=== PATIENT | female | born 1995 | race Caucasian/White ===

== ENCOUNTER 2018-01-22 11:29 | Emergency (ER) | payer OTHER, SELFPAY ==
[2018-01-22] MEDS ORDERED: PROMETHAZINE 25 MG/ML VIAL ONE ×2 (13:00→14:59)
[2018-01-22] MEDS ORDERED: NA CHLORIDE 0.9% 2,000 ML ONE (13:01)
[2018-01-22 13:40] LABS: Absolute Lymphocytes (CBC) 1.2 K/uL (0.7-4.9); Absolute Monocytes 0.4 K/uL (0.1-1.3); Absolute Neutrophil 4.9 K/uL (1.8-8.0); Basophils % 0.3 % (0-1.3); Eosinophils % 0.1 % (0-4.4); Hematocrit 39.6 % (36.0-45.0); Lymphocytes % 18.6 % (15.3-44.8); MCH 30.4 pg (27.0-35.0); MCV 86.1 fL (80-100); MPV 9.6 fL (7.6-11.3); Monocytes % 6.7 % (3.3-12.3)
[2018-01-22 13:49] LABS: ALT/SGPT 18 U/L (12-78); AST/SGOT 9 U/L (15-37); Albumin 4.3 g/dL (3.4-5.0); Alkaline Phosphatase 71 U/L (45-117); BUN Blood Urea Nitrogen 6 mg/dL (7-18); Bicarbonate 26 mmol/L (21-32); Bilirubin Direct 0.3 mg/dL (0-0.2); Bilirubin Total 0.9 mg/dL (0.2-1.0); Glucose Level 81 mg/dL (74-106); Lipase 63 U/L (73-393); Protein, Total 7.7 g/dL (6.4-8.2); Sodium Level 140 mmol/L (136-145)
[2018-01-22] MEDS ORDERED: KCL 20 MEQ/100 mL IVPB 20 MEQ/100 ML BAG IV ONE (14:22)
[2018-01-22 14:59] LABS: Urine Bacteria >50 /HPF (<20); Urine Culture Reflex Order NOT NEEDED; Urine RBC <5 /HPF (NONE SEEN)
[2018-01-22] MEDS ORDERED: CEFTRIAXONE/SWI 1gm 1 GM/10 ML SYR ONE (15:17)
--- NOTE | 2018-01-22 15:32 | EDPHYS ---
Physician Documentation [facility] Name: Jade Gaona Age: 22 yrs Sex: Female : 1995 Arrival Date: 01/22/2018 Time: 11:34 Bed 20 Private MD: None, None ED Physician Jez Devi HPI: 01/22 13:01 This 22 yrs old Female presents to ER via Ambulatory with complaints of snw Abdominal Pain, Vomiting. 13:01 The patient presents with tenderness to generalized abdomen s/p vomiting x 5 days. Seen snw at [facility] on Thursday, dx with food poisoning/pt disagrees. Onset: The symptoms/episode began/occurred suddenly, 5 day(s) ago, and became worse and became persistent. The symptoms do not radiate. The symptoms are described as crampy. Modifying factors: The symptoms are alleviated by nothing, the symptoms are aggravated by vomiting. Severity of pain: At its worst the pain was moderate severe. The patient has not experienced similar symptoms in the past. The patient has been recently seen by a physician: as noted. 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 - Social history:: Smoking status: Patient/guardian denies using tobacco. - Ebola Screening: : No symptoms or risks identified at this time. ROS: 13:00 Constitutional: Negative for fever, chills, and weight loss, Eyes: Negative for injury, snw pain, redness, and discharge, ENT: Negative for injury, pain, and discharge, Neck: Negative for injury, pain, and swelling, Cardiovascular: Negative for chest pain, palpitations, and edema, Respiratory: Negative for shortness of breath, cough, wheezing, and pleuritic chest pain, Back: Negative for injury and pain, : Negative for injury, bleeding, discharge, and swelling, MS/Extremity: Negative for injury and deformity, Skin: Negative for injury, rash, and discoloration, Neuro: Negative for headache, weakness, numbness, tingling, and seizure, Psych: Negative for depression, anxiety, suicide ideation, homicidal ideation, and hallucinations. 13:00 Abdomen/GI: Positive for nausea, vomiting. Exam: 13:00 Head/Face: Normocephalic, atraumatic. Eyes: Pupils equal round and reactive to light, snw extra-ocular motions intact. Lids and lashes normal. Conjunctiva and sclera are non-icteric and not injected. Cornea within normal limits. Periorbital areas with no swelling, redness, or edema. ENT: Nares patent. No nasal discharge, no septal abnormalities noted. Tympanic membranes are normal and external auditory canals are clear. Oropharynx with no redness, swelling, or masses, exudates, or evidence of obstruction, uvula midline. Mucous membranes moist. Neck: Trachea midline, no thyromegaly or masses palpated, and no cervical lymphadenopathy. Supple, full range of motion without nuchal rigidity, or vertebral point tenderness. No Meningismus. Chest/axilla: Normal chest wall appearance and motion. Nontender with no deformity. No lesions are appreciated. Cardiovascular: Regular rate and rhythm with a normal S1 and S2. No gallops, murmurs, or rubs. Normal PMI, no JVD. No pulse deficits. Respiratory: Lungs have equal breath sounds bilaterally, clear to auscultation and percussion. No rales, rhonchi or wheezes noted. No increased work of breathing, no retractions or nasal flaring. 13:00 Back: No spinal tenderness. No costovertebral tenderness. Full range of motion. Skin: Warm, dry with normal turgor. Normal color with no rashes, no lesions, and no evidence of cellulitis. MS/ Extremity: Pulses equal, no cyanosis. Neurovascular intact. Full, normal range of motion. Neuro: Awake and alert, GCS 15, oriented to person, place, time, and situation. Cranial nerves II-XII grossly intact. Motor strength 5/5 in all extremities. Sensory grossly intact. Cerebellar exam normal. Normal gait. 13:00 Constitutional: The patient appears anxious, frail, restless, unkempt. 13:00 Abdomen/GI: Inspection: abdomen appears normal, Bowel sounds: normal, Palpation: mild abdominal tenderness, in all quadrants. 13:00 Psych: Behavior/mood is anxious, inappropriate for age, Oriented to person, place, time. Vital Signs: 11:41 BP 120 / 80; Pulse 87; Resp 16; Temp 98.1; Pulse Ox 100% on R/A; Pain 3/10; hb 13:00 BP 116 / 64; Pulse 88; Resp 16; Pulse Ox 99% on R/A; em 14:34 BP 121 / 68; Pulse 62; Resp 18; Pulse Ox 100% on R/A; Pain 0/10; em 15:36 BP 106 / 57; Pulse 71; Resp 16; Pulse Ox 99% on R/A; Pain 0/10; em MDM: 12:44 Patient medically screened. snw 15:31 Data reviewed: vital signs, nurses notes. Data interpreted: Pulse oximetry: on room air snw is 100 %. Interpretation: normal. Counseling: I had a detailed discussion with the patient and/or guardian regarding: the historical points, exam findings, and any diagnostic results supporting the discharge/admit diagnosis, lab results, the need for outpatient follow up, to return to the emergency department if symptoms worsen or persist or if there are any questions or concerns that arise at home. Awaiting: potassium infusion to finish. Special discussion: Based on the patient's Hx, exam, and Dx evaluation, there is no indication for emergent surgery or inpatient Tx. It is understood by the patient/guardian that if the Sx's persist or worsen they need to return immediately for re-evaluation. Based on the history and exam findings, there is no indication for further emergent testing or inpatient evaluation. I discussed with the patient/guardian the need to see the primary care provider for further evaluation of the symptoms. 01/22 11:45 Order name: Urine Microscopic Only; Complete Time: 15:06 snw 01/22 12:47 Order name: Basic Metabolic Panel; Complete Time: 13:52 snw 01/22 12:47 Order name: CBC with Diff; Complete Time: 14:26 snw 01/22 12:47 Order name: Hepatic Function; Complete Time: 13:52 snw 01/22 12:47 Order name: Lipase; Complete Time: 13:52 snw 01/22 12:48 Order name: Test, Serum; Complete Time: 13:49 snw 01/22 11:45 Order name: Urine Test (obtain specimen); Complete Time: 14:31 snw 01/22 14:49 Order name: Urine Dipstick--Ancillary (enter results) 01/22 11:45 Order name: Urine Dipstick-Ancillary (obtain specimen); Complete Time: 14:31 snw 01/22 12:47 Order name: IV Saline Lock; Complete Time: 13:09 snw 01/22 12:47 Order name: Labs collected and sent; Complete Time: 13:09 snw Administered Medications: 13:08 Drug: NS 0.9% 1000 ml Route: IV; Rate: 1 bolus; Site: left antecubital; em 15:00 Follow up: IV Status: Completed infusion; IV Intake: 1000ml em 13:09 Drug: NS 0.9% 1000 ml Route: IV; Rate: 1 bolus; Site: left antecubital; em 15:00 Follow up: IV Status: Completed infusion; IV Intake: 1000ml em 13:15 Drug: Phenergan 12.5 mg Route: IVP; Site: left antecubital; iw 14:18 Follow up: Response: No adverse reaction; Nausea is decreased em 14:29 Drug: Potassium Chloride 20 mEq Route: IV; Rate: calculated rate; Site: left em antecubital; 15:59 Follow up: Response: No adverse reaction; IV Status: Completed infusion; IV Intake: em 100ml 14:57 Drug: Phenergan 12.5 mg Route: IVP; Site: left antecubital; em 15:59 Follow up: Response: No adverse reaction; Nausea is decreased em 15:50 Drug: Rocephin 1 grams Route: IV; Rate: calculated rate; Site: left antecubital; iw 15:59 Follow up: Response: No adverse reaction; IV Status: Completed infusion; IV Intake: 10mlem Disposition: 18:13 Co-signature as Attending Physician, Jez Devi MD I agree with the assessment and kdr plan of care. Disposition: 01/22/18 15:31 Discharged to Home. Impression: Vomiting, unspecified, Hypokalemia, Dehydration, Urinary tract infection, site not specified. - Condition is Stable. - Discharge Instructions: Clear Liquid Diet, Adult, Potassium Content of Foods, Nausea and Vomiting, Adult, Urinary Tract Infection, Adult, Rehydration, Adult. - Prescriptions for promethazine 25 mg Oral Tablet - take 1 tablet by ORAL route every 6 hours As needed; 20 tablet. Augmentin 875- 125 mg Oral Tablet - take 1 tablet by ORAL route every 12 hours for 10 days; 20 tablet. - Work release form, Medication Reconciliation Form, Thank You Letter, Antibiotic Education, Prescription Opioid Use form. - Follow up: Emergency Department; When: As needed; Reason: Worsening of condition. Follow up: Private Physician; When: 2 - 3 days; Reason: Recheck today's complaints, Continuance of care, Re-evaluation by your physician. Signatures: Dispatcher [employer] EDMS Jez Devi MD MD [facility] Sally Bradley, LITO-C BOILER SHOP MECHANIC-Csnw Vasiliy Fernandez, ELEMENTARY SCHOOL MUSIC TEACHER ELEMENTARY SCHOOL MUSIC TEACHER em Bri Mills RN RN Linn Hudson RN RN Corrections: (The following items were deleted from the chart) 16:00 15:31 01/22/2018 15:31 Discharged to Home. Impression: Vomiting, unspecified; em Hypokalemia; Dehydration; Urinary tract infection, site not specified. Condition is Stable. Discharge Instructions: Clear Liquid Diet, Adult, Potassium Content of Foods, Nausea and Vomiting, Adult, Rehydration, Adult, Urinary Tract Infection, Adult. Prescriptions for promethazine 25 mg Oral Tablet - take 1 tablet by ORAL route every 6 hours As needed; 20 tablet, Augmentin 875-125 mg Oral Tablet - take 1 tablet by ORAL route every 12 hours for 10 days; 20 tablet. and Forms are Work release form, Medication Reconciliation Form, Thank You Letter, Antibiotic Education, Prescription Opioid Use. Follow up: Emergency Department; When: As needed; Reason: Worsening of condition. Follow up: Private Physician; When: 2 - 3 days; Reason: Recheck today's complaints, Continuance of care, Re-evaluation by your physician. snw
--- NOTE | 2018-01-22 15:32 | ER ---
Nurse's Notes [facility] Name: Jade Gaona Age: 22 yrs Sex: Female : 1995 Arrival Date: 01/22/2018 Time: 11:34 Bed 20 Private MD: None, None Diagnosis: Vomiting, unspecified;Hypokalemia;Dehydration;Urinary tract infection, site not specified Presentation: 01/22 11:39 Presenting complaint: Patient states: N/V and upper abdominal pain x 5 days, not hb tolerating liquids. Denies fever/diarrhea. Transition of care: patient was not received from another setting of care. Onset of symptoms was January 18, 2018. Risk Assessment: Do you want to hurt yourself or someone else? Patient reports no desire to harm self or others. Care prior to arrival: None. 11:39 Method Of Arrival: Ambulatory hb 11:39 Acuity: JENNIFER 3 hb 13:10 Initial Sepsis Screen: Does the patient meet any 2 criteria? No. Patient's initial em sepsis screen is negative. Does the patient have a suspected source of infection? No. Patient's initial sepsis screen is negative. 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 - Social history:: Smoking status: Patient/guardian denies using tobacco. - Ebola Screening: : No symptoms or risks identified at this time. Screenin:10 Abuse screen: Denies threats or abuse. Nutritional screening: Has had N/V for 3 or more em days. Tuberculosis screening: No symptoms or risk factors identified. Fall Risk None identified. Assessment: 13:00 General: Appears uncomfortable, Behavior is cooperative, anxious, Reports Denies fever. em Pain: Complains of pain in abdomen Pain currently is 3 out of 10 on a pain scale. Neuro: Level of Consciousness is awake, alert, obeys commands, Oriented to person, place, time, situation, Denies dizziness. Cardiovascular: Capillary refill < 3 seconds Patient's skin is warm and dry. Respiratory: Airway is patent Respiratory effort is even, unlabored, Respiratory pattern is regular, symmetrical, Breath sounds are clear bilaterally. GI: Abdomen is flat, Bowel sounds present X 4 quads. Abd is soft X 4 quads Abdomen is tender to palpation X 4 quads. Reports nausea, vomiting, Patient currently denies diarrhea. : No signs and/or symptoms were reported regarding the genitourinary system. EENT: No signs and/or symptoms were reported regarding the EENT system. Derm: Skin is intact, is healthy with good turgor, Skin is pink, warm \T\ dry. Musculoskeletal: Capillary refill < 3 seconds, Range of motion: intact in all extremities. 13:15 Reassessment: Patient appears in no apparent distress at this time. I agree with above iw assessment by Vasiliy Fernandez LVN. 14:00 Reassessment: Patient appears in no apparent distress at this time. Patient and/or em family updated on plan of care and expected duration. Pain level reassessed. Patient is alert, oriented x 3, equal unlabored respirations, skin warm/dry/pink. Patient denies pain at this time. Patient states feeling better. Patient states symptoms have improved. 14:50 Reassessment: Patient appears in no apparent distress at this time. Patient and/or em family updated on plan of care and expected duration. Pain level reassessed. Patient is alert, oriented x 3, equal unlabored respirations, skin warm/dry/pink. c/o nausea, provider notified, new medication orders received, pending completion of IV potassium. 15:55 Reassessment: Patient appears in no apparent distress at this time. Patient and/or em family updated on plan of care and expected duration. Pain level reassessed. Patient is alert, oriented x 3, equal unlabored respirations, skin warm/dry/pink. Patient denies pain at this time. Patient states feeling better. Patient states symptoms have improved. Vital Signs: 11:41 BP 120 / 80; Pulse 87; Resp 16; Temp 98.1; Pulse Ox 100% on R/A; Pain 3/10; hb 13:00 BP 116 / 64; Pulse 88; Resp 16; Pulse Ox 99% on R/A; em 14:34 BP 121 / 68; Pulse 62; Resp 18; Pulse Ox 100% on R/A; Pain 0/10; em 15:36 BP 106 / 57; Pulse 71; Resp 16; Pulse Ox 99% on R/A; Pain 0/10; em ED Course: 11:34 Patient arrived in ED. mr 11:34 None, None is Private Physician. mr 11:42 Arm band placed on. hb 11:49 Triage completed. hb 11:56 Sally Bradley [facility]NP-C [facility] snw 11:56 Jez Devi MD is Attending Physician. snw 13:08 Vasiliy Fernandez LVN is Primary Nurse. em 13:10 Patient has correct armband on for positive identification. Placed in gown. Bed in low em position. Call light in reach. Side rails up X2. 15:54 No provider procedures requiring assistance completed. IV discontinued, intact, em bleeding controlled, No redness/swelling at site. Pressure dressing applied. Administered Medications: 13:08 Drug: NS 0.9% 1000 ml Route: IV; Rate: 1 bolus; Site: left antecubital; em 15:00 Follow up: IV Status: Completed infusion; IV Intake: 1000ml em 13:09 Drug: NS 0.9% 1000 ml Route: IV; Rate: 1 bolus; Site: left antecubital; em 15:00 Follow up: IV Status: Completed infusion; IV Intake: 1000ml em 13:15 Drug: Phenergan 12.5 mg Route: IVP; Site: left antecubital; iw 14:18 Follow up: Response: No adverse reaction; Nausea is decreased em 14:29 Drug: Potassium Chloride 20 mEq Route: IV; Rate: calculated rate; Site: left em antecubital; 15:59 Follow up: Response: No adverse reaction; IV Status: Completed infusion; IV Intake: em 100ml 14:57 Drug: Phenergan 12.5 mg Route: IVP; Site: left antecubital; em 15:59 Follow up: Response: No adverse reaction; Nausea is decreased em 15:50 Drug: Rocephin 1 grams Route: IV; Rate: calculated rate; Site: left antecubital; iw 15:59 Follow up: Response: No adverse reaction; IV Status: Completed infusion; IV Intake: 10mlem Intake: 15:00 IV: 1000ml; Total: 1000ml. em 15:00 IV: 1000ml; Total: 2000ml. em 15:59 IV: 100ml; Total: 2100ml. em 15:59 IV: 10ml; Total: 2110ml. em Outcome: 15:31 Discharge ordered by . ezio 15:54 Discharged to home ambulatory. em 15:54 Condition: good 15:54 Discharge instructions given to patient, Instructed on discharge instructions, follow up and referral plans. medication usage, Demonstrated understanding of instructions, follow-up care, medications, Prescriptions given X 2. 16:00 Patient left the ED. em Signatures: Sally Bradley, RESTAURANT HOURLY MANAGER-C RESTAURANT HOURLY MANAGER-Csnw Soha Mccartney, Vasiliy, WHEEL POLISHER WHEEL POLISHER em Bri Mills, RN RN Linn Brian, YA RN hb
[2018-01-22 16:17] VITALS: TEMP 98.1
[2018-01-22 16:20] VITALS: BP 106/57; O2SAT 99
[2018-01-22 16:56] LABS: Urine Blood NEGATIVE (NEG); Urine Glucose NEGATIVE (NEG); Urine Protein TRACE (NEG); Urine Specific Gravity 1.015 (1.005-1.030)
== END 2018-01-22 16:00 | disposition home or self-care (01) ==
LOC: ER 11:29
DX: E87.6 Hypokalemia (principal); E86.0 Dehydration; N39.0 Urinary tract infection, site not specified; R11.10 Vomiting, unspecified
CPT/HCPCS: 36415; 80048; 80076; 81003; 81015; 83690; 84703; 85025; 96361; 96365; 96375; 99283; J0696; J2550; J7030

== ENCOUNTER 2020-04-22 02:49 | Emergency (ER) | payer SELFPAY ==
--- OUTSIDE RECORDS SUMMARY | 2020-04-22 02:52 | XMS REPORT | Continuity of Care Document ---
:1995 Author Organization [facility] t Address [address] [place] [address] Dr. Rondon [address] [place] [id number] Care Team Providers Name Role Phone Unavailable Unavailable Unavailable Problems This patient has no known problems. Allergies, Adverse Reactions, Alerts This patient has no known allergies or adverse reactions. Medications This patient has no known medications. Procedures This patient has no known procedures. Results This patient has no known results.
--- NOTE | 2020-04-22 04:13 | ER ---
Nurse's Notes [facility] Name: Jade Gaona Age: 24 yrs Sex: Female : 1995 Arrival Date: 04/22/2020 Time: 02:51 Bed 5 Private MD: Diagnosis: Dental caries Presentation: 04/22 03:10 Coronavirus screen: Client denies travel out of the [place] in the last 14 days. At this sg time, the client does not indicate any symptoms associated with coronavirus-19. Ebola Screen: Patient negative for fever greater than or equal to 101.5 degrees Fahrenheit, and additional compatible Ebola Virus Disease symptoms Patient denies exposure to infectious person. Patient denies travel to an Ebola-affected area in the 21 days before illness onset. No symptoms or risks identified at this time. Initial Sepsis Screen: Does the patient meet any 2 criteria? No. Patient's initial sepsis screen is negative. Does the patient have a suspected source of infection? No. Patient's initial sepsis screen is negative. Risk Assessment: Do you want to hurt yourself or someone else? Patient reports no desire to harm self or others. Onset of symptoms was April 22, 2020. Care prior to arrival: None. Transition of care: patient was not received from another setting of care. 03:10 Acuity: JENNIFER 4 sg 03:10 Method Of Arrival: Ambulatory 03:10 Chief complaint: Patient states: Right upper jaw pain, reports having an issue with the sg tooth and gums, similar incident with the left side and a root canal was done and improved the pain. pt states would like to get something to help control the pain until follow up with dentist. Historical: - Allergies: 03:10 No Known Allergies; sg - PSHx: 03:10 Femur - left; sg - Immunization history:: Adult Immunizations not up to date. - Social history:: Smoking status: Patient reports the use of cigarette tobacco products. Screenin:37 Abuse screen: Denies threats or abuse. Denies injuries from another. Nutritional rv screening: No deficits noted. Tuberculosis screening: No symptoms or risk factors identified. Fall Risk None identified. Assessment: 03:36 General: Appears uncomfortable, Behavior is crying. Pain: Complains of pain in right rv jaw, right side of the face. Neuro: Level of Consciousness is awake, alert, obeys commands, Oriented to person, place, time, situation. Cardiovascular: Patient's skin is warm and dry. Respiratory: Airway is patent Respiratory effort is even, unlabored, Breath sounds are clear bilaterally. EENT: Vital Signs: 03:32 BP 134 / 71; Pulse 61; Resp 16; Temp 97.8; Pulse Ox 98% ; rv ED Course: 02:51 Patient arrived in ED. am4 03:10 Triage completed. sg 03:10 Arm band placed on. sg 03:32 Mani Sloan, RN is Primary Nurse. rv 03:37 Patient has correct armband on for positive identification. Pulse ox on. NIBP on. rv 03:37 No provider procedures requiring assistance completed. rv 03:52 Des Acuna MD is Attending Physician. [facility] 04:12 Sd Walker DDS is Referral Physician. [facility] 04:17 Patient did not have IV access during this emergency room visit. rv Administered Medications: 04:12 Drug: Walker 5 mg-325 mg 1 tabs {Note: rass 0.} Route: PO; rv 04:17 Follow up: Response: Medication administered at discharge. rv Outcome: 04:12 Discharge ordered by . [facility] 04:17 Discharged to home ambulatory. rv 04:17 Condition: good 04:17 Discharge instructions given to patient, Instructed on discharge instructions, follow up and referral plans. medication usage, Demonstrated understanding of instructions, follow-up care, medications, Prescriptions given X 2. 04:17 Patient left the ED. rv Signatures: Ja Meyers RN RN Mani Sloan, RN RN Des Acuna MD MD Monae Melgar am4
--- NOTE | 2020-04-22 04:13 | EDPHYS ---
Physician Documentation [facility] Name: Jade Gaona Age: 24 yrs Sex: Female : 1995 Arrival Date: 04/22/2020 Time: 02:51 Bed 5 Private MD: ED Physician Des Acuna HPI: 04/22 04:06 This 24 yrs old Female presents to ER via Ambulatory with complaints of Jaw mh7 Pain. 04:06 The patient presents with pain. The problem is located in the right upper tooth. mh7 04:07 Onset: The symptoms/episode began/occurred 1 week(s) ago. Duration: The symptoms are mh7 intermittent, with no pattern. Modifying factors: The symptoms are alleviated by nothing, the symptoms are aggravated by chewing, cold fluids. Associated signs and symptoms: Pertinent positives: pain, Pertinent negatives: anorexia, chills, dysphagia, fever, inability to eat, nausea, redness in area, swelling, vomiting. Severity of symptoms: At their worst the symptoms were moderate, yesterday, in the emergency department the symptoms are unchanged. Historical: - Allergies: 03:10 No Known Allergies; sg - PSHx: 03:10 Femur - left; sg - Immunization history:: Adult Immunizations not up to date. - Social history:: Smoking status: Patient reports the use of cigarette tobacco products. ROS: 04:07 Constitutional: Negative for fever, chills, and weight loss, Eyes: Negative for injury, mh7 pain, redness, and discharge, Neck: Negative for injury, pain, and swelling, Cardiovascular: Negative for chest pain, palpitations, and edema, Respiratory: Negative for shortness of breath, cough, wheezing, and pleuritic chest pain, Abdomen/GI: Negative for abdominal pain, nausea, vomiting, diarrhea, and constipation, Back: Negative for injury and pain, : Negative for injury, bleeding, discharge, and swelling, MS/Extremity: Negative for injury and deformity, Skin: Negative for injury, rash, and discoloration, Neuro: Negative for headache, weakness, numbness, tingling, and seizure, Psych: Negative for depression, anxiety, suicide ideation, homicidal ideation, and hallucinations, Allergy/Immunology: Negative for hives, rash, and allergies, Endocrine: Negative for neck swelling, polydipsia, polyuria, polyphagia, and marked weight changes, Hematologic/Lymphatic: Negative for swollen nodes, abnormal bleeding, and unusual bruising. Exam: 04:07 Head/Face: Normocephalic, atraumatic. Eyes: Pupils equal round and reactive to light, mh7 extra-ocular motions intact. Lids and lashes normal. Conjunctiva and sclera are non-icteric and not injected. Cornea within normal limits. Periorbital areas with no swelling, redness, or edema. 04:07 Neck: Trachea midline, no thyromegaly or masses palpated, and no cervical lymphadenopathy. Supple, full range of motion without nuchal rigidity, or vertebral point tenderness. No Meningismus. Chest/axilla: Normal chest wall appearance and motion. Nontender with no deformity. No lesions are appreciated. Cardiovascular: Regular rate and rhythm with a normal S1 and S2. No gallops, murmurs, or rubs. Normal PMI, no JVD. No pulse deficits. Respiratory: Lungs have equal breath sounds bilaterally, clear to auscultation and percussion. No rales, rhonchi or wheezes noted. No increased work of breathing, no retractions or nasal flaring. Abdomen/GI: Soft, non-tender, with normal bowel sounds. No distension or tympany. No guarding or rebound. No evidence of tenderness throughout. Skin: Warm, dry with normal turgor. Normal color with no rashes, no lesions, and no evidence of cellulitis. MS/ Extremity: Pulses equal, no cyanosis. Neurovascular intact. Full, normal range of motion. Neuro: Awake and alert, GCS 15, oriented to person, place, time, and situation. Cranial nerves II-XII grossly intact. Motor strength 5/5 in all extremities. Sensory grossly intact. Cerebellar exam normal. Normal gait. Psych: Awake, alert, with orientation to person, place and time. Behavior, mood, and affect are within normal limits. 04:07 Constitutional: The patient appears in no acute distress, alert, awake, uncomfortable. 04:07 ENT: Mouth: is normal, Posterior pharynx: is normal, airway is patent, Dental exam: abscess, is not appreciated, avulsion, cellulitis, is not appreciated, dental caries, that is moderate, specifically in the upper right third molar (#1), upper right second molar (#2), upper left second molar (#15) and upper left third molar (#16), fractured teeth are noted, not appreciated, gum swelling, not appreciated, malocclusion, is not appreciated, missing teeth, not appreciated, pain, that is moderate, specifically in the upper right third molar (#1) and upper right second molar (#2), Voice: is normal, Breath odor: is normal. Vital Signs: 03:32 BP 134 / 71; Pulse 61; Resp 16; Temp 97.8; Pulse Ox 98% ; rv MDM: 04:07 Differential diagnosis: dental caries, gingivitis, dental abscess, pericoronitis, mh7 aphthous ulcers, acute necrotizing ulcerative gingivitis, gingivostomatitis. Data reviewed: vital signs, nurses notes. Data interpreted: Pulse oximetry: on room air is 98 %. Interpretation: normal. Counseling: I had a detailed discussion with the patient and/or guardian regarding: the historical points, exam findings, and any diagnostic results supporting the discharge/admit diagnosis, the need for outpatient follow up, a dentist, to return to the emergency department if symptoms worsen or persist or if there are any questions or concerns that arise at home. 04:12 Patient medically screened. mh7 Administered Medications: 04:12 Drug: [place] 5 mg-325 mg 1 tabs {Note: rass 0.} Route: PO; rv 04:17 Follow up: Response: Medication administered at discharge. rv Disposition: 04/22/20 04:12 Discharged to Home. Impression: Dental caries. - Condition is Stable. - Discharge Instructions: Dental Pain, [id number], Dental Caries, [id number]. - Prescriptions for Amoxicillin 500 mg Oral Capsule - take 1 capsule by ORAL route every 8 hours for 10 days; 30 tablet. Tylenol- Codeine #3 300-30 mg Oral Tablet - take 2 tablets by ORAL route every 6 hours As needed; 15 tablet. - Medication Reconciliation Form, Thank You Letter, Antibiotic Education, Prescription Opioid Use form. - Follow up: Private Physician; When: 1 - 2 days; Reason: Worsening of condition, Recheck today's complaints, Continuance of care, Re-evaluation by your physician. Follow up: Sd Walker DDS; When: 1 - 2 days; Reason: Worsening of condition, Further diagnostic work-up, Recheck today's complaints. - Problem is an acute exacerbation. - Symptoms have improved. Signatures: Ja Meyers RN RN sg Mani Sloan RN RN rv Des Acuna MD MD mh7 Corrections: (The following items were deleted from the chart) 04:17 04:12 04/22/2020 04:12 Discharged to Home. Impression: Dental caries. Condition is rv Stable. Forms are Medication Reconciliation Form, Thank You Letter, Antibiotic Education, Prescription Opioid Use. Follow up: Private Physician; When: 1 - 2 days; Reason: Worsening of condition, Recheck today's complaints, Continuance of care, Re-evaluation by your physician. Follow up: Sd Walker; When: 1 - 2 days; Reason: Worsening of condition, Further diagnostic work-up, Recheck today's complaints. Problem is an acute exacerbation. Symptoms have improved. mh7
[2020-04-22 04:22] VITALS: BP 134/71; TEMP 97.8; O2SAT 98
[2020-04-22] MEDS ORDERED: HYDROCODONE/APAP 5/325 MG TAB ONE (04:28)
== END 2020-04-22 04:17 | disposition home or self-care (01) ==
LOC: ER 02:49
DX: K02.9 Dental caries, unspecified (principal); Z72.0 Tobacco use
CPT/HCPCS: 99283